=== PATIENT | female | born 1965 | race African-American/Black ===

== ENCOUNTER 2018-10-01 10:57 | Emergency (ER) | payer BC, OTHER ==
[~2018-10-01] VITALS: Ht 157.5 cm; Wt 104.3 kg
[2018-10-01 12:12] LABS: ABSOLUTE NEUTROPHILS 7.3 thou/uL (1.4-8.2); HEMATOCRIT 38.4 % (37.0-47.0); HEMOGLOBIN 13.5 gm/dL (12.0-15.0); LYMPHOCYTES 32.1 % (24.0-44.0); MCH 27.6 pg (26.0-34.0); MCHC 35.2 g/dL (28.0-37.0); MCV 78.5 fL (80.0-100.0); MONOCYTES 3.3 % (1.0-8.0); PLATELET COUNT 244 thou/uL (150-400); POLYS 61.6 % (36.0-66.0); RBC 4.89 mil/uL (4.20-5.00); WBC 11.9 thou/uL (4.0-11.0)
[2018-10-01 12:21] LABS: CALCIUM 9.1 mg/dL (8.5-10.1); POTASSIUM 3.3 mmol/L (3.5-5.1)
[2018-10-01 12:28] LABS: ALBUMIN 3.8 g/dL (3.4-5.0); TOTAL BILIRUBIN 0.5 mg/dL (<0.1-1.0); TOTAL PROTEIN 8.2 g/dL (6.4-8.2)
[2018-10-01] MEDS ORDERED: ZPAK PO (12:44)
[2018-10-01 13:12] VITALS: BP 136/79
--- NOTE | 2018-10-01 16:18 | EKG ---
[address] [address] [place] [address] ELECTROCARDIOGRAM REPORT Name: LYNN LORENZO Room #: DEP Dary#: [id number] Admission: 10/01/18 Attend Phys: Discharge: 10/01/18 Date of : 65 Report #: [id number] THIS REPORT FOR: //name// [facility] ED Test Date: 2018-10-01 Test Time: 11:15:36 Pat Name: LYNN LORENZO Department: Room: Gender: F Colorist: POLLY : 1965 Requested By: Shay Castillo Order Number: [id number] MD: Sonny Jackson Measurements Intervals [place] Rate: 100 P: 6 WV: 146 QRS: -60 QRSD: 88 T: 19 QT: 343 QTc: 443 Interpretive Statements Sinus tachycardia Left anterior fascicular block Abnormal R-wave progression, late transition Baseline wander in lead(s) V1,V2 No previous ECG available for comparison Electronically Signed On 10-01-2018 16:18:00 [employer]SUMER RECRUITER by Sonny Jackson [email or web address] <ELECTRONICALLY SIGNED> By: Sonny Jackson MD, [facility] 10/01/18 1618 1115 [id number] Sonny Jackson MD, [facility] /EPI
== END 2018-10-01 13:13 | disposition home or self-care (01) ==
LOC: ER 10:57
PROVIDERS: Nurse Practitioner
DX: J18.9 Pneumonia, unspecified organism (principal); J45.909 Unspecified asthma, uncomplicated; Z88.8 Allergy status to other drugs, medicaments and biological substances